=== PATIENT | male | born 1935 | race Caucasian/White ===

== ENCOUNTER → 2017-04-16 | Outpatient (CLI) | payer MEDICARE, OTHER ==
[~2017-04-16] MED LIST: ADENOSINE 82 MG in GIVE UN-DILUTED 0 ML IV ONE
== END | disposition home or self-care (01) ==
LOC: Rad HDHVI 08:41
PROVIDERS: ATTEND Internal Medicine Cardiovascular Disease
DX: I10 Essential (primary) hypertension (principal); E78.5 Hyperlipidemia, unspecified; R06.02 Shortness of breath
CPT/HCPCS: 78452; 93005; 93306; 93880; 96374; 96375; A9500; J0153

== ENCOUNTER → 2017-06-11 | Outpatient (CLI) | payer MEDICARE, OTHER ==
[~2017-06-11] MED LIST changes: -ADENOSINE 82 MG in GIVE UN-DILUTED 0 ML IV ONE; +AMLO5TAB2 PO; +CAND32TA OR; +CHOL135C6 OR; +EZET10TA PO; +LEVO75TA50 PO; +METO-169 PO; +OMEP20TA PO
[2017-06-11 08:55] VITALS: BP 129/74
[2017-06-11 09:20] VITALS: BP 123/74
[2017-06-11 12:01] LABS: Basophils # (auto) 0 uL; Basophils % (auto) 0.7 % (0.0-2.0); Eosinophils # (auto) 0 uL; Hematocrit 46.8 % (41.0-53.0); Lymphocytes % (auto) 16.6 % (10.0-50.0); Mean Corpuscular Hemoglobin 30.7 pg (28.0-32.0); Mean Corpuscular Hgb Conc. 34.2 g/dL (32.0-36.0); Mean Corpuscular Volume 89.8 fL (80.0-100.0); Monocytes # (auto) 0.5 uL; Monocytes % (auto) 8.7 % (0.0-12.0); Neutrophils # (auto) 4.6 uL; Nucleated Red Blood Cells % 0.7 %; Platelet Count (auto) 134 10^3/uL (140-450); Red Blood Cells 5.22 10^6/uL (4.5-5.90); Red Cell Distribution Width 13.9 % (11.8-14.3); White Blood Cell 6.2 10^3/uL (4.4-10.8)
[2017-06-11 12:10] LABS: BUN/Creatinine Ratio 18.8; Calcium 9.7 mg/dL (8.5-10.1); Potassium 4.4 mmol/L (3.5-5.1)
[2017-06-11 12:12] LABS: INR 0.98 (0.9-1.15); Partial Thromboplastin Time 26.6 sec (22.64-33.71); Prothrombin Time 10.7 sec (9.37-12.3)
== END | disposition home or self-care (01) ==
LOC: Rad HDHVI 08:46
PROVIDERS: ATTEND Internal Medicine Cardiovascular Disease
DX: Z01.818 Encounter for other preprocedural examination (principal); I70.0 Atherosclerosis of aorta; I10 Essential (primary) hypertension; E78.5 Hyperlipidemia, unspecified
CPT/HCPCS: 36415; 71046; 80048; 85025; 85610; 85730; 93005; G0463

== ENCOUNTER → 2017-09-09 | Outpatient (CLI) | payer MEDICARE, BC | END | disposition home or self-care (01) | LOC: Rad HDHVI 13:41 | PROVIDERS: ATTEND Internal Medicine Cardiovascular Disease | DX: I25.10 Atherosclerotic heart disease of native coronary artery without angina pectoris (principal); I51.7 Cardiomegaly; I35.1 Nonrheumatic aortic (valve) insufficiency | CPT/HCPCS: 93306 ==

== ENCOUNTER → 2018-06-23 | Outpatient (CLI) | payer MEDICARE, BC ==
[~2018-06-23] VITALS: Ht 175.3 cm; Wt 99.8 kg
[~2018-06-23] MED LIST changes: +ADENOSINE 84 MG in GIVE UN-DILUTED 0 ML IV ONE; +ADENOSINE 90 MG/30 ML INJ IV ONE; +AMLO5TAB13 PO; -AMLO5TAB2 PO
== END | disposition home or self-care (01) ==
LOC: Rad HDHVI 12:40
PROVIDERS: ATTEND Internal Medicine Cardiovascular Disease
DX: I35.1 Nonrheumatic aortic (valve) insufficiency (principal); I25.119 Atherosclerotic heart disease of native coronary artery with unspecified angina pectoris; J44.9 Chronic obstructive pulmonary disease, unspecified; I11.0 Hypertensive heart disease with heart failure; I50.32 Chronic diastolic (congestive) heart failure; Z95.5 Presence of coronary angioplasty implant and graft; Z86.69 Personal history of other diseases of the nervous system and sense organs
CPT/HCPCS: 78452; 93005; 93306; 96374; 96375; A9500; J0153

== ENCOUNTER → 2019-12-07 | Outpatient (CLI) | payer MEDICARE, BC ==
[~2019-12-07] MED LIST changes: -ADENOSINE 84 MG in GIVE UN-DILUTED 0 ML IV ONE; -ADENOSINE 90 MG/30 ML INJ IV ONE; -AMLO5TAB13 PO; +AMLO5TAB15 PO; +CHOL135C10 OR; -CHOL135C6 OR; -EZET10TA PO; +EZET10TA20 PO
== END | disposition home or self-care (01) ==
LOC: Rad HDHVI 08:48
PROVIDERS: ATTEND Internal Medicine Cardiovascular Disease
DX: I50.43 Acute on chronic combined systolic (congestive) and diastolic (congestive) heart failure (principal); R07.89 Other chest pain
CPT/HCPCS: 93306

== ENCOUNTER → 2019-12-09 | Outpatient (CLI) | payer MEDICARE, BC ==
[~2019-12-09] VITALS: Ht 175.3 cm; Wt 104.8 kg
[~2019-12-09] MED LIST changes: +ADENOSINE 88 MG in GIVE UN-DILUTED 0 ML IV ONE; +ADENOSINE 90 MG/30 ML INJ IV ONE
== END | disposition home or self-care (01) ==
LOC: Rad HDHVI 13:18
PROVIDERS: ATTEND Internal Medicine Cardiovascular Disease
DX: I11.0 Hypertensive heart disease with heart failure (principal); I50.32 Chronic diastolic (congestive) heart failure; I25.10 Atherosclerotic heart disease of native coronary artery without angina pectoris; E78.00 Pure hypercholesterolemia, unspecified; J44.9 Chronic obstructive pulmonary disease, unspecified; R06.02 Shortness of breath; Z82.49 Family history of ischemic heart disease and other diseases of the circulatory system
CPT/HCPCS: 78452; 93005; 96374; 96375; A9500; J0153

== ENCOUNTER → 2020-04-13 | Outpatient (CLI) | payer MEDICARE, BC ==
[~2020-04-13] MED LIST changes: -ADENOSINE 88 MG in GIVE UN-DILUTED 0 ML IV ONE; -ADENOSINE 90 MG/30 ML INJ IV ONE; +AMLO-489 PO; -AMLO5TAB15 PO; +LEV75T PO; -LEVO75TA50 PO
== END | disposition home or self-care (01) ==
LOC: Rad HDHVI 10:00
PROVIDERS: ATTEND Internal Medicine Cardiovascular Disease
DX: I25.119 Atherosclerotic heart disease of native coronary artery with unspecified angina pectoris (principal); I10 Essential (primary) hypertension
CPT/HCPCS: 93880

== ENCOUNTER → 2020-10-09 | Outpatient (CLI) | payer MEDICARE, BC ==
[~2020-10-09] MED LIST changes: -METO-169 PO; +METO-289 PO
== END | disposition home or self-care (01) ==
LOC: Rad HDHVI 12:59
PROVIDERS: ATTEND Internal Medicine Cardiovascular Disease
DX: I08.3 Combined rheumatic disorders of mitral, aortic and tricuspid valves (principal); I50.43 Acute on chronic combined systolic (congestive) and diastolic (congestive) heart failure; R00.2 Palpitations; I71.2 Thoracic aortic aneurysm, without rupture
CPT/HCPCS: 93306

== ENCOUNTER 2023-12-17 09:29 | Inpatient (IN) | payer MEDICARE, BC ==
[~2023-12-17] VITALS: Ht 177.8 cm; Wt 74.2 kg
[~2023-12-17 09:29] MED LIST changes: -AMLO-489 PO; +AMLO1TAB22 PO; +EZET-59 PO; -EZET10TA20 PO
[2023-12-17 09:55] VITALS: PULSE 105; RESP 30; O2SAT 93
--- NOTE | 2023-12-17 10:11 | ED.PDOC ---
SOB-HPI HPI Comments 88 year old male accompanied by daughter presents to the ED with chief complaint of generalized weakness. Daughter reports that the patient has been experiencing generalized weakness with associated increased confusion, urinary frequency, productive cough with yellow phlegm, and chills since last night. Daughter relays that the patient is normally able to ambulate a short distance with a walker, but now he is too weak to be able to move on his own with a walker. Daughter states patient is currently undergoing treatment for Prostate cancer at [facility], needing to receive injections every 3 months. Patient denies any SOB, chest pain, dizziness, headache, fever, or abdominal pain. Chief Complaint: Flu like Time Seen by MD: 10:06 Primary Care Provider: DR TOLEDO Reviewed notes: Nurses Notes, Medications, Allergies Information Source: Patient, Relative (Daughter) Mode of Arrival: Wheelchair Severity: Moderate Timing: Hours Duration: Since onset Context: At Rest PE Risk Factors: None History of: None Prehospital treatment: None Modifying Factors: Nothing Associated Signs and Symptoms: Cough If cough with SOB: Productive, Yellow Past Medical History PAST MEDICAL HISTORY: Cancer (prostate), Dementia Surgical History: Denies all surgeries Family History Family History: Reviewed,noncontributory to illness Social History Smoker: Non-Smoker Alcohol: Denies ETOH Use Drugs: Denies Drug Use Lives In: Home, Assisted Care Constitutional: reports: chills, weakness; denies: diaphoresis, fatigue, fever, malaise, sweats, others EENTM: denies: blurred vision, double vision, ear bleeding, ear discharge, ear drainage, ear pain, ear ringing, eye pain, eye redness, hearing loss, mouth pain, mouth swelling, nasal discharge, nose bleeding, nose congestion, nose liv n, photophobia, tearing, throat pain, throat swelling, voice changes, others Respiratory: reports: cough; denies: hemoptysis, orthopnea, SOB at rest, shortness of breath, SOB with excertion, stridor, wheezing, others Cardiovascular: denies: chest pain, dizzy spells, diaphoresis, Dyspnea on exertion, edema, irregular heart beat, left arm pain, lightheadedness, palpitations, PND, syncope, others Gastrointestinal: denies: abdomen distended, abdominal pain, blood streaked bowels, constipated, diarrhea, dysphagia, difficulty swallowing, hematemesis, me mariela, nausea, poor appetite, poor fluid intake, rectal bleeding, rectal pain, vomiting, others Genitourinary: reports: frequency; denies: burning, dysuria, flank pain, hematuria, incontinence, penile discharge, penile sore, pain, testicle pain, testicle swelling, urgency, others Neurological: denies: dizziness, fainting, headache, left sided numbness, left sided weakness, numbness, paresthesia, pre-existing deficit, right sided numbness, right sided weakness, seizure, speech problems, tingling, tremors, weakness, others Musculoskeletal: denies: back pain, gout, joint pain, joint swelling, muscle pain, muscle stiffness, neck pain, others Integumetry: denies: bruises, change in color, change in hair/nails, dryness, laceration, lesions, lumps, rash, wounds, others Allergic/Immunocompromised: denies: Difficulty Healing, Frequent Infections, Hives, Itching, others Hematologic/Lymphatic: denies: anemia, blood clots, easy bleeding, easy bruising, swollen glands, others Endocrine: denies: excessive hunger, excessive sweating, excessive thirst, excessive urination, flushing, intolerance to cold, intolerance to heat, unexplained weight gain, unexplained weight loss, others Psychiatric: denies: anxiety, bipolar disorder, depression, hopeless, panic disorder, schizophrenia, sleepless, suicidal, others All Other Systems: Reviewed and Negative Physical Exam General Appearance: Moderate Distress, Normal HEENT: Normal ENT Inspection, PERRL/EOMI Neck: Full Range of Motion, Non-Tender, Normal, Normal Inspection Respiratory: Chest Non-Tender, No Accessory Muscle Use, No Respiratory Distress, Other (Coarse breath sounds) Cardiovascular: No Edema, No JVD, No Murmur, No Gallop, Normal Peripheral Puls es, Regular Rate/Rhythm Breast Exam: Deferred Gastrointestinal: No Organomegaly, Non Tender, No Pulsatile Mass, Normal Bowel Sounds, Soft Genitalia: Deferred Pelvic: Deferred Rectal: Deferred Extremities: No calf tenderness, Normal capillary refill, Normal inspection, Normal range of motion, Non-tender, No pedal edema Musculoskeletal : Apperance: Normal Neurologic: 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 Was a procedure done?: No Differential Dx Differential Diagnosis: Anxiety, Asthma, Bronchitis X-Ray, Labs, Meds, VS Vital Signs Date Time Temp Pulse Resp B/P (MAP) Pulse Ox O2 Delivery O2 Flow Rate FiO2 12/17/23 16:00 99 19 99/57 (71) 92 12/17/23 16:00 104 12/17/23 15:10 109 25 101/56 12/17/23 14:39 102 29 124/63 12/17/23 12:04 100 18 129/61 (83) 92 12/17/23 12:00 104 28 129/61 (83) 92 12/17/23 09:55 105 30 131/66 (87) 93 12/17/23 09:55 105 30 93 Room Air* 0 21 12/17/23 09:39 98.8 122 20 120/66 (84) 94 Lab Test 12/17/23 14:30 12/17/23 12:41 12/17/23 11:19 Range/Units Troponin I High Sensitivity 231 *H 187 *H 154 *H </=54 ng/L White Blood Count 8.7 4.4-10.8 10^3/uL Red Blood Count 4.42 L 4.5-5.90 10^6/uL Hemoglobin 14.0 13.5-17.5 g/dL Hematocrit 41.5 41.0-53.0 % Mean Corpuscular Volume 93.9 80.0-100.0 fL Mean Corpuscular Hemoglobin 31.6 28.0-32.0 pg Mean Corpuscular Hemoglobin Concent 33.7 32.0-36.0 g/dL Red Cell Distribution Width 13.0 11.8-14.3 % Platelet Count 91 L 140-450 10^3/uL Mean Platelet Volume 7.2 6.9-10.8 fL Neutrophils (%) (Auto) 89.4 H 37.0-80.0 % Lymphocytes (%) (Auto) 3.3 L 10.0-50.0 % Monocytes (%) (Auto) 6.9 0.0-12.0 % Eosinophils (%) (Auto) 0.1 0.0-7.0 % Basophils (%) (Auto) 0.3 0.0-2.0 % Neutrophils # (Auto) 7.8 1.6-8.6 10 ^3/uL Lymphocytes # (Auto) 0.3 L 0.4-5.4 10 ^3/uL Monocytes # (Auto) 0.6 0-1.3 10 ^3/uL Eosinophils # (Auto) 0 0-0.8 10 ^3/uL Basophils # (Auto) 0 0-0.2 10 ^3/uL Nucleated Red Blood Cells 0.0 % Sodium Level 137 136-145 mmol/L Potassium Level 3.5 3.5-5.1 mmol/L Chloride Level 106 98-107 mmol/L Carbon Dioxide Level 27 20-31 mmol/L Anion Gap 4 L 5-15 Blood Urea Nitrogen 16 9-23 mg/dL Creatinine 1.09 0.700-1.30 mg/dL Glomerular Filtration Rate Calc 66 >90 mL/min BUN/Creatinine Ratio 14.7 10.0-20.0 Serum Glucose 107 H 74-106 mg/dL Calcium Level 9.6 8.7-10.4 mg/dL Current Medications Medications (Trade) Dose Ordered Sig/Bob Route Start Time Stop Time Status Last Admin Sodium Chloride 1,000 ml @ 150 mls/hr Q6H40M ONCE IV 12/17/23 11:00 12/17/23 17:39 12/17/23 11:13 Levofloxacin/ Dextrose 100 ml @ 100 mls/hr ONCE ONCE IV 12/17/23 12:45 12/17/23 13:44 DC 12/17/23 12:51 Ondansetron HCl (Zofran) 4 mg ONCE ONCE IV 12/17/23 14:45 12/17/23 14:46 DC 12/17/23 14:38 Morphine Sulfate 2 mg ONCE ONCE IV 12/17/23 14:45 12/17/23 14:46 DC 12/17/23 14:39 Patient alert. Generalized weakness. Uses walker. He does have dry mucous membranes. Establish intravenous access. Was given fluids. EKG reviewed does not show any acute changes. Explained to the family the treatment plan. Reviewed his previous visit. Cardiac marker elevated. Was given Lovenox. Chest x-ray reviewed does show pneumonia. Was given Levaquin. Continue cardiac monitoring. Chest XR: Diffuse interstitial opacities which can be seen in setting of pulmonary edema or atypical infection. Suggestion of sclerotic appearance of the osseous structures for which metastatic disease can not be excluded. Possible pathologic bilateral rib fractures. Further evaluation with CT is recommended. Images Reviewed?: Images reviewed and evaluated by me Time of 1ST Reevaluation: 11:06 Reevaluation 1ST: Unchanged Patient Education/Counseling: Diagnosis, Treatment Family Education/Counseling: Diagnosis, Treatment Departure 1 Departure Time of Disposition: 11:20 Impression: Primary Impression: NSTEMI (non-ST elevated myocardial infarction) Additional Impressions: Dehydration Pneumonia Qualified Codes: J18.9 - Pneumonia, unspecified organism Disposition: ADMITTED INPATIENT Admit to: Med Surg Condition: Guarded Critical Care Note Critical Care Time?: Yes (45 min-critical care time only) Stability Stability form required: No Heart Score Heart Score: Heart Score Response (Comments) Value History Slightly Suspicious 0 EKG Normal 0 Age >65 2 Risk Factors >3 or Hx ASHD 2 Troponin Normal limit 0 Total 4 I personally scribed for REI LARSON MD ([email or web address]) on 12/17/23 at 10:11. Electronically submitted by [place] ([email or web address]). I personally scribed for REI LARSON MD ([email or web address]) on 12/17/23 at 11:45. Electronically submitted by [place] ([email or web address]). REI LARSON MD Dec 17, 2023 10:11
[2023-12-17] MEDS: SODIUM CHLORIDE 0.9% 1,000 ML IV ONE (11:13)
--- NOTE | 2023-12-17 11:30 | DVH ---
EXAM: XY CHEST PORTABLE Indication:sob Technique: Single frontal view of the chest was obtained Comparison: None FINDINGS: Lines and Tubes: None Lungs: Diffuse interstitial opacities. Pleura: No effusion. No pneumothorax. Cardiomediastinal contours: Unremarkable Bones: Suggestion of sclerotic appearance of the osseous structures. Possible pathologic bilateral ri b fractures. IMPRESSION: Diffuse interstitial opacities which can be seen in setting of pulmonary edema or atypical infection. Suggestion of sclerotic appearance of the osseous structures for which metastatic disease can not be excluded. Possible pathologic bilateral rib fractures. Further evaluation with CT is recommended.
[2023-12-17 11:52] LABS: Basophils # (auto) 0 10 ^3/uL (0-0.2); Basophils % (auto) 0.3 % (0.0-2.0); Eosinophils # (auto) 0 10 ^3/uL (0-0.8); Eosinophils % (auto) 0.1 % (0.0-7.0); Hematocrit 41.5 % (41.0-53.0); Lymphocytes # (auto) 0.3 10 ^3/uL (0.4-5.4); Lymphocytes % (auto) 3.3 % (10.0-50.0); Mean Corpuscular Hemoglobin 31.6 pg (28.0-32.0); Mean Corpuscular Hgb Conc. 33.7 g/dL (32.0-36.0); Mean Corpuscular Volume 93.9 fL (80.0-100.0); Monocytes # (auto) 0.6 10 ^3/uL (0-1.3); Monocytes % (auto) 6.9 % (0.0-12.0); Neutrophils # (auto) 7.8 10 ^3/uL (1.6-8.6); Neutrophils % (auto) 89.4 % (37.0-80.0); Platelet Count (auto) 91 10^3/uL (140-450); Red Blood Cells 4.42 10^6/uL (4.5-5.90); White Blood Cell 8.7 10^3/uL (4.4-10.8)
[2023-12-17 12:00] LABS: Chloride 106 mmol/L (98-107); Potassium 3.5 mmol/L (3.5-5.1); Sodium 137 mmol/L (136-145)
[2023-12-17 12:01] LABS: Anion Gap 4 (5-15); Calcium 9.6 mg/dL (8.7-10.4); Carbon Dioxide 27 mmol/L (20-31)
[2023-12-17 12:06] LABS: BUN/Creatinine Ratio 14.7 (10.0-20.0); Blood Urea Nitrogen 16 mg/dL (9-23); Glucose 107 mg/dL (74-106)
[2023-12-17] MEDS: levoFLOXacin 500MG 100 ML IV ONE (12:51)
[2023-12-17] MEDS: ENOXAPARIN SOD 80 MG/0.8ML SYRINGE SC ONE (13:43)
[2023-12-17] MEDS: ONDANSETRON HCL 4 MG/2 ML VIAL IV ONE (14:38)
[2023-12-17] MEDS: MORPHINE SULFATE INJ 2 MG/ml SYRG IV ONE (14:39)
[2023-12-17] MEDS ORDERED: MORPHINE SULFATE INJ 2 MG/ml SYRG IV PRN (18:45)
[2023-12-17] MEDS ORDERED: LEVO200T7 PO (18:45)
[2023-12-17] MEDS ORDERED: TAMS0.4C39 PO (18:45)
[2023-12-17] MEDS ORDERED: ACETAMINOPHEN 325 MG TAB PO PRN (18:45)
[2023-12-17] MEDS ORDERED: ONDANSETRON HCL 4 MG/2 ML VIAL IV PRN (18:45)
[2023-12-17] MEDS ORDERED: DOCUSATE SOD 100 MG CAP PO PRN (18:45)
[2023-12-17] MEDS ORDERED: NITROGLYCERIN 0.4 MG SL TAB SL PRN (18:45)
[2023-12-17] MEDS ORDERED: HYDROcodone-ACET 5/325MG TAB PO PRN (18:45)
[2023-12-17] MEDS ORDERED: PRE5T PO (18:45)
[2023-12-17] MEDS ORDERED: ABIR250T5 PO (18:46)
--- NOTE | 2023-12-17 19:02 | DVHHP2 ---
History of Present Illness Reason for Visit: Generalized weakness History of Present Illness Mary Dockery is an 88-year-old male with past medical history of dementia, hypothyroidism, and prostate cancer, who came into the ER due to generalized weakness. Family states the patient has become more fatigued, confused, frequent urination, and having flu like symptoms with a productive cough, and chills since last night. Patient has had elevated troponin while in the ER, he denies any chest pain, but was complaining of shoulder pain when he arrived. 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 Heme/Onc: Cancer (Prostate) Endocrine: Hypothyroidism Past Surgical History: Cholecystectomy, Cataract Removal, Other (back, PTCA), Total hip replacement (right) Family History: None Smoke: No ALCOHOL: none Drugs: None Lives: with Family Domestic Violence: Neg Review of Systems Constitutional: Yes: Chills, Weakness, Malaise; No: Fever, Sweats, Other Eyes: No: Pain, Vision change, Conjunctivae inflammation, Eyelid inflammation, Other, Redness ENT: No: Ear pain, Ear discharge, Nose pain, Nose discharge, Nose congestion, Mouth pain, Mouth swelling, Throat pain, Throat swelling, Other Respiratory: Cough, Shortness of breath, SOB with excertion, Sputum; No: Dry, Wheezing, Hemoptysis, Pleuritic Pain, Wheezing, Other Cardiovascular: No: Chest Pain, Palpitations, Orthopnea, Paroxysmal Noc. Dyspnea, Edema, Lt Headedness, Other Gastrointestinal: No: Nausea, Vomiting, Abdominal Pain, Diarrhea, Constipation, Melena, Hematochezia, Other Genitourinary: No Dysuria, No Frequency, No Incontinence, No Hematuria, No Retention, No Other Musculoskeletal: No: other, neck pain, shoulder pain, arm pain, back pain, hand pain, leg pain, foot pain Skin: No: Rash, Lesions, Jaundice, Bruising, Other Neurological: No: Weakness, Numbness, Incoordination, Change in speech, Confusion, Seizures, Other Allergies: Coded Allergies: NO KNOWN ALLERGIES (Unverified , 06/11/17) Medications Current Medications Medications Dose Ordered Sig/Bob Route Start Time Stop Time Status Last Admin Dose Admin Sodium Chloride 10 ml Q8HR IV 12/17/23 22:00 UNV Acetaminophen/ Hydrocodone Bitart 1 tab Q4HP PRN PO 12/17/23 18:45 UNV Ondansetron HCl 4 mg Q4HP PRN IV 12/17/23 18:45 UNV Docusate Sodium 100 mg BIDPRN PRN PO 12/17/23 18:45 UNV Acetaminophen 650 mg Q6HP PRN PO 12/17/23 18:45 UNV Nitroglycerin 0.4 mg Q5MINP PRN SL 12/17/23 18:45 UNV Morphine Sulfate 2 mg Q30M PRN IV 12/17/23 18:45 UNV Patient Own Medication 1 tab DAILY PO 12/18/23 10:00 UNV Prednisone 5 mg DAILY PO 12/18/23 10:00 UNV Tamsulosin HCl 0.4 mg BID PO 12/17/23 22:00 UNV Patient Own Medication 1 tab DAILY PO 12/18/23 10:00 UNV Exam Vital Signs Vital Signs Date Time Temp Pulse Resp B/P (MAP) Pulse Ox O2 Delivery O2 Flow Rate FiO2 12/17/23 16:00 99 19 99/57 (71) 92 12/17/23 09:55 Room Air* 0 21 12/17/23 09:39 98.8 General Appearance: Alert, Oriented X3, Cooperative, mild distress HEENT: Atraumatic, PERRLA Respiratory: Other (diminshed breath sounds) Cardiovascular: Regular rate, Normal S1, Normal S2 Abdominal: Normal bowel sounds, Soft, No tenderness Extremities: No clubbing, No cyanosis, No edema, Normal pulses Skin: No rashes, No breakdown, No significant lesion Psych/Mental Status: Mental status NL Labs/Xrays Labs Test 12/17/23 14:30 12/17/23 11:19 Range/Units Troponin I High Sensitivity 231 *H </=54 ng/L White Blood Count 8.7 4.4-10.8 10^3/uL Red Blood Count 4.42 L 4.5-5.90 10^6/uL Hemoglobin 14.0 13.5-17.5 g/dL Hematocrit 41.5 41.0-53.0 % Mean Corpuscular Volume 93.9 80.0-100.0 fL Mean Corpuscular Hemoglobin 31.6 28.0-32.0 pg Mean Corpuscular Hemoglobin Concent 33.7 32.0-36.0 g/dL Red Cell Distribution Width 13.0 11.8-14.3 % Platelet Count 91 L 140-450 10^3/uL Mean Platelet Volume 7.2 6.9-10.8 fL Neutrophils (%) (Auto) 89.4 H 37.0-80.0 % Lymphocytes (%) (Auto) 3.3 L 10.0-50.0 % Monocytes (%) (Auto) 6.9 0.0-12.0 % Eosinophils (%) (Auto) 0.1 0.0-7.0 % Basophils (%) (Auto) 0.3 0.0-2.0 % Neutrophils # (Auto) 7.8 1.6-8.6 10 ^3/uL Lymphocytes # (Auto) 0.3 L 0.4-5.4 10 ^3/uL Monocytes # (Auto) 0.6 0-1.3 10 ^3/uL Eosinophils # (Auto) 0 0-0.8 10 ^3/uL Basophils # (Auto) 0 0-0.2 10 ^3/uL Nucleated Red Blood Cells 0.0 % Sodium Level 137 136-145 mmol/L Potassium Level 3.5 3.5-5.1 mmol/L Chloride Level 106 98-107 mmol/L Carbon Dioxide Level 27 20-31 mmol/L Anion Gap 4 L 5-15 Blood Urea Nitrogen 16 9-23 mg/dL Creatinine 1.09 0.700-1.30 mg/dL Glomerular Filtration Rate Calc 66 >90 mL/min BUN/Creatinine Ratio 14.7 10.0-20.0 Serum Glucose 107 H 74-106 mg/dL Calcium Level 9.6 8.7-10.4 mg/dL EXAM: XY CHEST PORTABLE FINDINGS: Lines and Tubes: None Lungs: Diffuse interstitial opacities. Pleura: No effusion. No pneumothorax. Cardiomediastinal contours: Unremarkable Bones: Suggestion of sclerotic appearance of the osseous structures. Possible pathologic bilateral rib fractures. IMPRESSION: Diffuse interstitial opacities which can be seen in setting of pulmonary edema or atypical infection. Suggestion of sclerotic appearance of the osseous structures for which metastatic disease can not be excluded. Possible pathologic bilateral rib fractures. Further evaluation with CT is recommended. Assessment/Plan Assessment/Plan Assessment: Pneumonia, Elevated troponin, Thrombocytopenia, Prostate cancer, Possible Bone cancer, Plan: Admit to Tele, Cardiology consult, IV antibiotics, Urine culture, Home medications reconciled, Consider chest CT to evaluate possible metastatic disease, Plan discussed with: Patient, Daughter My Orders Orders - ALIS PARIS Procedure Category Date Status Time Admit ADMIT 12/17/23 Transmitted 18:40 Code Status CODE 12/17/23 Transmitted 18:40 2 Gm Sodium Diet DIET 12/18/23 Transmitted Breakfast Sodium Chloride Lock PHA 12/17/23 Logged (Saline Lock Ns) 22:00 Hydrocodone-Acet PHA 12/17/23 Logged 5/325mg Tab (Clarence 18:45 Ondansetron Hcl PHA 12/17/23 Logged (Zofran) 18:45 Docusate Sodium PHA 12/17/23 Logged Capsule (Colace 18:45 Fall Risk Precautions SAGRARIO 12/17/[address] 18:40 Complete Blood Count LAB 12/18/23 Verified 04:00 Comprehensive LAB 12/18/23 Verified Metabolic Panel 04:00 Echo 2d Mode Cardiac US 12/17/23 Logged DOP 18:40 Condition: Serious SAGRARIO 12/17/23 In Process 18:40 Acetaminophen Tablet PHA 12/17/23 Logged (Tylenol Tablet) 18:45 Nitroglycerin PHA 12/17/23 Logged Sublingual (Ntrostat 18:45 Morphine Sulfate PHA 12/17/23 Logged Injection 18:45 Stat Ekg For Chest SAGRARIO 12/17/23 In Process Pain 18:40 Notify Of Changes S[place]IO 12/17/23 In Process From Base 18:40 Supercharger Repair Supervisor For [facility] 12/17/23 In Process 24 Hours 18:40 Emergency Dysrhythmia [facility] 12/17/23 In Process Protocol 18:40 Rhythm Strips Once [facility] 12/17/23 In Process Every Shift 18:40 Oxygen By Nasal RT 12/17/23 Transmitted Cannula 18:40 (Nf) Omeprazole (Gnp PHA 12/18/23 Logged Omeprazole) 10:00 Prednisone Tablet PHA 12/18/23 Transmitted 10:00 Tamsulosin PHA 12/17/23 Transmitted Hydrochloride (Flomax) 22:00 (Nf) Levothyroxine PHA 12/18/23 Transmitted Sodium 10:00 Date of Service: Dec 17, 2023 Billing Provider: ALIS PARIS Common Visit Codes: [id number] INP/OBS CARE (MOD) ALIS PARIS Dec 17, 2023 19:02
[2023-12-17 19:30] VITALS: PULSE 105; RESP 15; O2SAT 94
[2023-12-17 22:18] VITALS: BP 103/45; PULSE 84; RESP 18; TEMP 99.3; O2SAT 91
[2023-12-17] MEDS: TAMSULOSIN HYDROCHLORIDE 0.4 MG CAP PO SCH (23:00)
[2023-12-17] MEDS: SODIUM CHLOR 0.9% PF (SALINE LOCK) 10ML VIAL/SYR IV SCH (23:01)
[2023-12-17 23:04] VITALS: BP 103/45; PULSE 84; PULSE 85; RESP 17; RESP 18; TEMP 99.3; O2SAT 91; O2SAT 92
[2023-12-18] VITALS (8 sets, daily range): BP systolic 94–140; BP diastolic 50–70; PULSE 61–96; RESP 16–19; TEMP 97.3–98.4; O2SAT 91–97
[2023-12-18] MEDS: LEVOTHYROXINE SODIUM 100 MCG TAB PO SCH (06:44)
[2023-12-18 07:01] LABS: Basophils # (auto) 0 10 ^3/uL (0-0.2); Basophils % (auto) 0.4 % (0.0-2.0); Eosinophils # (auto) 0 10 ^3/uL (0-0.8); Eosinophils % (auto) 0.2 % (0.0-7.0); Hemoglobin 12.9 g/dL (13.5-17.5); Lymphocytes # (auto) 0.4 10 ^3/uL (0.4-5.4); Lymphocytes % (auto) 7.8 % (10.0-50.0); Mean Corpuscular Hemoglobin 31.3 pg (28.0-32.0); Mean Corpuscular Hgb Conc. 33.2 g/dL (32.0-36.0); Mean Corpuscular Volume 94.5 fL (80.0-100.0); Monocytes # (auto) 0.6 10 ^3/uL (0-1.3); Monocytes % (auto) 10.2 % (0.0-12.0); Neutrophils # (auto) 4.5 10 ^3/uL (1.6-8.6); Neutrophils % (auto) 81.4 % (37.0-80.0); Platelet Count (auto) 81 10^3/uL (140-450); Red Blood Cells 4.12 10^6/uL (4.5-5.90); Red Cell Distribution Width 13.4 % (11.8-14.3); White Blood Cell 5.5 10^3/uL (4.4-10.8)
[2023-12-18 07:25] LABS: Albumin 3.2 g/dL (3.2-4.8); Alkaline Phosphatase 157 U/L (46-116); Anion Gap 6 (5-15); Aspartate Aminotransferase 19 U/L (13-40); BUN/Creatinine Ratio 23.7 (10.0-20.0); Blood Urea Nitrogen 23 mg/dL (9-23); Calcium 9.3 mg/dL (8.7-10.4); Carbon Dioxide 25 mmol/L (20-31); Chloride 107 mmol/L (98-107); Glucose 89 mg/dL (74-106); Potassium 3.9 mmol/L (3.5-5.1); Sodium 138 mmol/L (136-145)
[2023-12-18 07:26] LABS: Bilirubin, Total 0.9 mg/dL (0.2-1.0); Total Protein 5.9 g/dL (5.7-8.2)
[2023-12-18 07:30] LABS: Alanine Aminotransferase < 9 U/L (7-40)
[2023-12-18] MEDS ORDERED: PATIENTS OWN MEDICATION (Omeprazole (Gnp Omeprazole) 1 TAB) PO SCH (10:00)
[2023-12-18] MEDS: PANTOPRAZOLE 40 MG TAB PO SCH (11:02)
[2023-12-18] MEDS: AZITHROMYCIN 500MG/ 250ML 250 ML IV SCH (11:03)
[2023-12-18] MEDS: predniSONE 5 MG TAB PO SCH (11:03)
--- NOTE | 2023-12-18 14:19 | DVHPN2 ---
Subjective History of Present Illness Mary Dockery is an 88-year-old male with past medical history of dementia, hypothyroidism, and prostate cancer, who came into the ER due to generalized weakness. Family states the patient has become more fatigued, confused, frequent urination, and having flu like symptoms with a productive cough, and chills since last night. Patient has had elevated troponin while in the ER, he denies any chest pain, but was complaining of shoulder pain when he arrived. upfate - 12/17 - patient is at baseline with respect to alert and orientation. Endorse is history of trouble urinating and frequency/nocturia. On exam he has feeling well itself. Reviewed: H&P Changes from previous H/P or p: No Changes General: Per HPI Musculoskeletal: No other, No neck pain, No shoulder pain, No arm pain, No back pain, No hand pain, No leg pain, No foot pain Skin: No Rash, No Lesions, No Jaundice, No Bruising, No Other Objective Vitals Vital Signs Date Time Temp Pulse Resp B/P (MAP) Pulse Ox O2 Delivery O2 Flow Rate FiO2 12/18/23 09:00 98.4 90 18 94/50 (65) 94 98.4 12/18/23 08:00 Room Air* 0 21 Intake/Output Intake and Output 12/18/23 07:00 Intake Total 100 ml Balance 100 ml Intake Oral 0 ml IV Total 100 ml # Voids 2 # Bowel Movements 1 Exam GEN: Healthy appearing, well-developed, NAD. HEENT: NC/AT; MMM. CV: LLL decreased breath sounds , no m/r/g. LUNGS: CTAB, no w/r/c. ABD: Soft, NT/ND, NBS, no masses or organomegaly. EXT: skin Warm, well perfused. no rashes. No clubbing, cyanosis, or edema. NEURO: Ambulating with no limitations. No focal deficits. Medications Current Medications Medications Dose Ordered Sig/Bob Route Start Time Stop Time Status Last Admin Dose Admin Sodium Chloride 10 ml Q8HR IV 12/17/23 22:00 12/18/23 05:36 10 ML Acetaminophen/ Hydrocodone Bitart 1 tab Q4HP PRN PO 12/17/23 18:45 Ondansetron HCl 4 mg Q4HP PRN IV 12/17/23 18:45 Docusate Sodium 100 mg BIDPRN PRN PO 12/17/23 18:45 Acetaminophen 650 mg Q6HP PRN PO 12/17/23 18:45 Nitroglycerin 0.4 mg Q5MINP PRN SL 12/17/23 18:45 Morphine Sulfate 2 mg Q30M PRN IV 12/17/23 18:45 Prednisone 5 mg DAILY PO 12/18/23 10:00 12/18/23 11:03 5 MG Tamsulosin HCl 0.4 mg BID PO 12/17/23 22:00 12/18/23 11:03 0.4 MG Levothyroxine Sodium 200 mcg QAM PO 12/18/23 07:00 12/18/23 06:44 200 MCG Azithromycin 250 ml @ 125 mls/hr DAILY IV 12/18/23 10:00 12/18/23 11:03 125 MLS/HR Pantoprazole Sodium 40 mg DAILY PO 12/18/23 10:00 12/18/23 11:02 40 MG Laboratory Results Laboratory Tests 12/18/23 06:00 Chemistry Test 12/18/23 06:00 Albumin 3.2 g/dL (3.2-4.8) Calcium Level 9.3 mg/dL (8.7-10.4) Total Protein 5.9 g/dL (5.7-8.2) LFT Test 12/18/23 06:00 Alanine Aminotransferase (ALT) < 9 U/L (7-40) Alkaline Phosphatase 157 U/L (46-116) H Aspartate Amino Transferase (AST) 19 U/L (13-40) Total Bilirubin 0.9 mg/dL (0.2-1.0) Labs and/or images reviewed: Labs reviewed by me, Image(s) reviewed by me Assessment/Plan Assessment/Plan - 12/17 - patient is at baseline with respect to alert and orientation. Endorse is history of trouble urinating and frequency/nocturia. On exam he has feeling well itself. Pneumonia, Gram-negative/Gram-positive organism likely Neutrophilia/left shift -chest x-ray showing atypical pneumonia and bilateral rib fractures which appear to be pathological in nature. -IV antibiotics azithromycin and ceftriaxone -goal oxygen more than 90% Frequency History of urinary hesitancy urinary incontinence, overflow BPH Concern for urinary infection - obtain UA, insert Soto -Continue Flomax Dementia -continue home medications Troponinemia Type 2 NSTEMI likely - keep on tele History of prostate cancer New unknown possible bone cancer Rib pathological fracture sites, unknown chronicity - as per cxr . radiology recommends CT Thrombocytopenia- stable. Plan discussed with: Patient My Orders Orders - MISA CARLSON MD Procedure Category Date Status Time Pt Request For Service PT 12/18/23 Logged 12:19 Date of Service: Dec 18, 2023 Billing Provider: MISA CARLSON MD Common Visit Codes: [id number] INP/OBS CARE(HIGH) MISA CARLSON MD Dec 18, 2023 14:19
--- NOTE | 2023-12-18 14:37 | DVHPN2 ---
Progress Note - Dictate Date Seen: Dec 16, 2023 Medical Necessity Reason Pt with a Central, PICC or Fol: No Subjective PT WITH COUGH FEVER AMS LETAGHY PMH: CAD HX OF PTCA STENT RCA DEMENTIA vital signs Vital Sign Date Time Temp Pulse Resp B/P (MAP) Pulse Ox O2 Delivery O2 Flow Rate FiO2 12/18/23 13:00 97.8 77 18 105/59 (74) 96 97.8 12/18/23 08:00 Room Air* 0 21 Total Intake and Output 12/17/23 12/17/23 12/18/23 15:00 23:00 07:00 Intake Total 100 ml 0 ml Balance 100 ml 0 ml medications Current Medications Medications Dose Ordered Sig/Bob Route Start Time Stop Time Status Last Admin Dose Admin Sodium Chloride 10 ml Q8HR IV 12/17/23 22:00 12/18/23 05:36 10 ML Acetaminophen/ Hydrocodone Bitart 1 tab Q4HP PRN PO 12/17/23 18:45 Ondansetron HCl 4 mg Q4HP PRN IV 12/17/23 18:45 Docusate Sodium 100 mg BIDPRN PRN PO 12/17/23 18:45 Acetaminophen 650 mg Q6HP PRN PO 12/17/23 18:45 Nitroglycerin 0.4 mg Q5MINP PRN SL 12/17/23 18:45 Morphine Sulfate 2 mg Q30M PRN IV 12/17/23 18:45 Prednisone 5 mg DAILY PO 12/18/23 10:00 12/18/23 11:03 5 MG Tamsulosin HCl 0.4 mg BID PO 12/17/23 22:00 12/18/23 11:03 0.4 MG Levothyroxine Sodium 200 mcg QAM PO 12/18/23 07:00 12/18/23 06:44 200 MCG Azithromycin 250 ml @ 125 mls/hr DAILY IV 12/18/23 10:00 12/18/23 11:03 125 MLS/HR Pantoprazole Sodium 40 mg DAILY PO 12/18/23 10:00 12/18/23 11:02 40 MG laboratory and microbiology Laboratory Tests 12/18/23 06:00 Test 12/18/23 06:00 Range/Units Serum Glucose 89 74-106 mg/dL Problem List COUGH FEVER AMS LETAGHY PMH: CAD HX OF PTCA STENT RCA DEMENTIA Assessment/Plan WILL CONSIDR [facility] DISCUSS WITH FAMILY Plan discussed with: Patient BENITEZ VALDERRAMA MD Dec 18, 2023 14:37
[2023-12-18 14:38] LABS: Urine Bacteria FEW /hpf (None Seen); Urine Blood 1+ /uL (Negative); Urine Clarity Clear (Clear); Urine Color Light-Yellow (Yellow); Urine Protein, UAD Negative (Negative); Urine Specific Gravity 1.012 (1.001-1.035); Urine Urobilinogen Normal (Negative); Urine WBC 2 /hpf (0 - 3)
--- NOTE | 2023-12-18 14:45 | MEDREC ---
[facility] Intervention Section I [facility] Intervention: Review courses of therapy (DUE TO THE PNEUMONIA INFECTION AND IMMUNOCOMPROMISED STATUS (CANCER), PLEASE CONSIDER ESCALATING ANTIBIOTICS TO COVER FOR POSSIBLE GRAM NEGATIVE BACTERIA ) ARIE GREENWOOD Dec 18, 2023 14:45
[2023-12-19] VITALS (9 sets, daily range): BP systolic 104–143; BP diastolic 52–64; PULSE 57–94; RESP 16–17; TEMP 97.4–98.5; O2SAT 94–98
--- NOTE | 2023-12-19 14:16 | DVHPN2 ---
Progress Note - Dictate Date Seen: Dec 19, 2023 Medical Necessity Reason Pt with a Central, PICC or Fol: No Subjective PT WITH COUGH FEVER AMS LETAGHY PMH: CAD HX OF PTCA STENT RCA DEMENTIA vital signs Vital Sign Date Time Temp Pulse Resp B/P (MAP) Pulse Ox O2 Delivery O2 Flow Rate FiO2 12/19/23 08:39 97.4 62 16 138/54 (82) 98 97.4 12/19/23 08:15 Room Air* 0 21 Total Intake and Output 12/18/23 12/18/23 12/19/23 15:00 23:00 07:00 Intake Total 720 ml 1860 ml 0 ml Output Total 250 ml 900 ml Balance 720 ml 1610 ml -900 ml medications Current Medications Medications Dose Ordered Sig/Bob Route Start Time Stop Time Status Last Admin Dose Admin Sodium Chloride 10 ml Q8HR IV 12/17/23 22:00 12/19/23 14:07 10 ML Acetaminophen/ Hydrocodone Bitart 1 tab Q4HP PRN PO 12/17/23 18:45 Ondansetron HCl 4 mg Q4HP PRN IV 12/17/23 18:45 Docusate Sodium 100 mg BIDPRN PRN PO 12/17/23 18:45 Acetaminophen 650 mg Q6HP PRN PO 12/17/23 18:45 Nitroglycerin 0.4 mg Q5MINP PRN SL 12/17/23 18:45 Morphine Sulfate 2 mg Q30M PRN IV 12/17/23 18:45 Prednisone 5 mg DAILY PO 12/18/23 10:00 12/19/23 09:32 5 MG Tamsulosin HCl 0.4 mg BID PO 12/17/23 22:00 12/19/23 09:33 0.4 MG Levothyroxine Sodium 200 mcg QAM PO 12/18/23 07:00 12/19/23 06:16 200 MCG Azithromycin 250 ml @ 125 mls/hr DAILY IV 12/18/23 10:00 12/19/23 09:32 125 MLS/HR Pantoprazole Sodium 40 mg DAILY PO 12/18/23 10:00 12/19/23 09:33 40 MG laboratory and microbiology Laboratory Tests 12/18/23 06:00 Test 12/18/23 06:00 Range/Units Serum Glucose 89 74-106 mg/dL Problem List COUGH FEVER AMS LETAGHY PMH: CAD HX OF PTCA STENT RCA DEMENTIA Assessment/Plan WILL CONSIDR C DISCUSS WITH FAMILY Plan discussed with: Patient BENITEZ VALDERRAMA MD Dec 19, 2023 14:15
--- NOTE | 2023-12-19 19:35 | DVHPN2 ---
Subjective History of Present Illness Mary Dockery is an 88-year-old male with past medical history of dementia, hypothyroidism, and prostate cancer, who came into the ER due to generalized weakness. Family states the patient has become more fatigued, confused, frequent urination, and having flu like symptoms with a productive cough, and chills since last night. Patient has had elevated troponin while in the ER, he denies any chest pain, but was complaining of shoulder pain when he arrived. update - 12/17 - patient is at baseline with respect to alert and orientation. Endorse is history of trouble urinating and frequency/nocturia. On exam he has feeling well itself. - 12/18 - appears more orient. at bedside offers complete history. 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 she takes care of him and is overwhelmed. 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 patient is dementia and does not want NH. needs help at home (home care or similar). PT following. cardiology following and considering [facility]. Reviewed: H&P Changes from previous H/P or p: No Changes General: Per HPI Musculoskeletal: No other, No neck pain, No shoulder pain, No arm pain, No back pain, No hand pain, No leg pain, No foot pain Skin: No Rash, No Lesions, No Jaundice, No Bruising, No Other Objective Vitals Vital Signs Date Time Temp Pulse Resp B/P (MAP) Pulse Ox O2 Delivery O2 Flow Rate FiO2 12/19/23 17:00 98.0 61 16 143/63 (89) 98 98.0 12/19/23 08:15 Room Air* 0 21 Intake/Output Intake and Output 12/19/23 07:00 Intake Total 2580 ml Output Total 1150 ml Balance 1430 ml Intake Oral 2580 ml Output Urine Total 1150 ml # Voids 4 # Bowel Movements 1 Exam GEN: Healthy appearing, well-developed, NAD. HEENT: NC/AT; MMM. CV: LLL decreased breath sounds , no m/r/g. LUNGS: CTAB, no w/r/c. ABD: Soft, NT/ND, NBS, no masses or organomegaly. EXT: skin Warm, well perfused. no rashes. No clubbing, cyanosis, or edema. NEURO: Ambulating with no limitations. No focal deficits. Medications Current Medications Medications Dose Ordered Sig/Bob Route Start Time Stop Time Status Last Admin Dose Admin Sodium Chloride 10 ml Q8HR IV 12/17/23 22:00 12/19/23 14:07 10 ML Acetaminophen/ Hydrocodone Bitart 1 tab Q4HP PRN PO 12/17/23 18:45 Ondansetron HCl 4 mg Q4HP PRN IV 12/17/23 18:45 Docusate Sodium 100 mg BIDPRN PRN PO 12/17/23 18:45 Acetaminophen 650 mg Q6HP PRN PO 12/17/23 18:45 Nitroglycerin 0.4 mg Q5MINP PRN SL 12/17/23 18:45 Morphine Sulfate 2 mg Q30M PRN IV 12/17/23 18:45 Prednisone 5 mg DAILY PO 12/18/23 10:00 12/19/23 09:32 5 MG Tamsulosin HCl 0.4 mg BID PO 12/17/23 22:00 12/19/23 09:33 0.4 MG Levothyroxine Sodium 200 mcg QAM PO 12/18/23 07:00 12/19/23 06:16 200 MCG Azithromycin 250 ml @ 125 mls/hr DAILY IV 12/18/23 10:00 12/19/23 09:32 125 MLS/HR Pantoprazole Sodium 40 mg DAILY PO 12/18/23 10:00 12/19/23 09:33 40 MG Laboratory Results Laboratory Tests 12/18/23 06:00 Urinalysis Test 12/18/23 14:10 Urine Color Light-yellow (Yellow) Urine Clarity Clear (Clear) Urine pH 6.0 (5.0-9.0) Urine Specific [place] 1.012 (1.001-1.035) Urine Protein Negative (Negative) Urine Ketones Negative (Negative) Urine Blood 1+ /uL (Negative) H Urine Nitrite Negative (Negative) Urine Bilirubin Negative (Negative) Urine Urobilinogen Normal mg/dL (Negative) Urine Leukocyte Esterase 1+ /uL (Negative) Urine RBC 3 /hpf (0 - 3) Urine WBC 2 /hpf (0 - 3) Urine Squamous Epithelial Cells None seen /hpf (<5) Urine Bacteria Few /hpf (None Seen) H Urine Glucose Normal mg/dL (Normal) Microbiology Microbiology Date/Time Source Procedure Growth Status 12/18/23 14:10 Voided Urine Urine Culture - Preliminary Resulted Labs and/or images reviewed: Labs reviewed by me, Image(s) reviewed by me Assessment/Plan Assessment/Plan update - 12/18 - appears more orient. at bedside offers complete history. 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 she takes care of him and is overwhelmed. 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 patient is dementia and does not want NH. needs help at home (home care or similar). PT following. cardiology following and considering [facility]. tentative plan: high risk pt, need IV abx. can keep inpatient until cardiology clears. meanwhile treat with iv abx and remove ray near discharge. hold off cancer drugs while inpatient. Pneumonia, Gram-negative/Gram-positive organism likely Neutrophilia/left shift -chest x-ray showing atypical pneumonia and bilateral rib fractures which appear to be pathological in nature. -IV antibiotics azithromycin and ceftriaxone -goal oxygen more than 90% Frequency History of urinary hesitancy urinary incontinence, overflow BPH Concern for urinary infection - obtain UA, - ray inserted. -Continue Flomax Dementia -continue home medications Troponinemia Type 2 NSTEMI likely - keep on tele - cardiology dr martinez considering [facility]. History of prostate cancer New unknown possible bone cancer Rib pathological fracture sites, unknown chronicity - as per cxr . radiology recommends CT. no need CT as pt already konwn to have mets. will need regular f/u with primary oncologist in [place]. Thrombocytopenia- stable. Plan discussed with: Patient Date of Service: Dec 19, 2023 Billing Provider: MISA CARLSON MD Common Visit Codes: [id number] INP/OBS CARE(HIGH) MISA CARLSON MD Dec 19, 2023 19:35
[2023-12-20] VITALS (9 sets, daily range): BP systolic 123–157; BP diastolic 67–83; PULSE 61–87; RESP 16–18; TEMP 97.4–98.3; O2SAT 90–98
--- NOTE | 2023-12-20 12:54 | DVHPN2 ---
Subjective patient is seen by me today speaking in full sentences, breathing clear. pending cath from dr Fontana Reviewed: H&P Changes from previous H/P or p: No Changes General: Per HPI Musculoskeletal: No other, No neck pain, No shoulder pain, No arm pain, No back pain, No hand pain, No leg pain, No foot pain Skin: No Rash, No Lesions, No Jaundice, No Bruising, No Other Objective Vitals Vital Signs Date Time Temp Pulse Resp B/P (MAP) Pulse Ox O2 Delivery O2 Flow Rate FiO2 12/20/23 08:59 97.4 83 16 123/69 (87) 94 97.4 12/20/23 07:53 Room Air* 0 21 Intake/Output Intake and Output 12/20/23 07:00 Intake Total 1450 ml Output Total 2100 ml Balance -650 ml Intake Oral 1450 ml Output Urine Total 2100 ml # Bowel Movements 1 Medications Current Medications Medications Dose Ordered Sig/Bob Route Start Time Stop Time Status Last Admin Dose Admin Sodium Chloride 10 ml Q8HR IV 12/17/23 22:00 12/20/23 05:51 10 ML Acetaminophen/ Hydrocodone Bitart 1 tab Q4HP PRN PO 12/17/23 18:45 Ondansetron HCl 4 mg Q4HP PRN IV 12/17/23 18:45 Docusate Sodium 100 mg BIDPRN PRN PO 12/17/23 18:45 Acetaminophen 650 mg Q6HP PRN PO 12/17/23 18:45 Nitroglycerin 0.4 mg Q5MINP PRN SL 12/17/23 18:45 Morphine Sulfate 2 mg Q30M PRN IV 12/17/23 18:45 Prednisone 5 mg DAILY PO 12/18/23 10:00 12/20/23 10:24 5 MG Tamsulosin HCl 0.4 mg BID PO 12/17/23 22:00 12/20/23 10:38 0.4 MG Levothyroxine Sodium 200 mcg QAM PO 12/18/23 07:00 12/20/23 05:49 200 MCG Azithromycin 250 ml @ 125 mls/hr DAILY IV 12/18/23 10:00 12/20/23 10:38 125 MLS/HR Pantoprazole Sodium 40 mg DAILY PO 12/18/23 10:00 12/20/23 10:24 40 MG Laboratory Results Laboratory Tests 12/18/23 06:00 Urinalysis Test 12/18/23 14:10 Urine Color Light-yellow (Yellow) Urine Clarity Clear (Clear) Urine pH 6.0 (5.0-9.0) Urine Specific [place] 1.012 (1.001-1.035) Urine Protein Negative (Negative) Urine Ketones Negative (Negative) Urine Blood 1+ /uL (Negative) H Urine Nitrite Negative (Negative) Urine Bilirubin Negative (Negative) Urine Urobilinogen Normal mg/dL (Negative) Urine Leukocyte Esterase 1+ /uL (Negative) Urine RBC 3 /hpf (0 - 3) Urine WBC 2 /hpf (0 - 3) Urine Squamous Epithelial Cells None seen /hpf (<5) Urine Bacteria Few /hpf (None Seen) H Urine Glucose Normal mg/dL (Normal) Microbiology Microbiology Date/Time Source Procedure Growth Status 12/18/23 14:10 Voided Urine Urine Culture - Final Complete Labs and/or images reviewed: Labs reviewed by me, Image(s) reviewed by me Assessment/Plan Assessment/Plan pneumonia possible aspiration BPH with LUTS troponin elevation likely type 2 [place] dementia, baseline hx of prostate cancer pathologic fractures thrombocytopenia keep ray cw flomax cw abx pending [facility] by dr Fontana pt will likely need PET as outpatient palliative consult hold dvt ppx for thrombocytopenia diet HH Plan discussed with: Patient Date of Service: Dec 21, 2023 Billing Provider: MARISA KELLY MD Common Visit Codes: [id number] INP/OBS CARE(HIGH) MARISA KELLY MD Dec 20, 2023 12:54
[2023-12-20] MEDS: MELATONIN 5 MG TAB PO ONE (22:31)
[2023-12-21] VITALS (8 sets, daily range): BP systolic 105–153; BP diastolic 61–76; PULSE 65–96; RESP 17–20; TEMP 97.3–97.8; O2SAT 92–98
--- NOTE | 2023-12-21 18:55 | DVHPN2 ---
Subjective patient is seen by me today VELMA, pending cath from dr Fontana Reviewed: H&P Changes from previous H/P or p: No Changes General: Per HPI Musculoskeletal: No other, No neck pain, No shoulder pain, No arm pain, No back pain, No hand pain, No leg pain, No foot pain Skin: No Rash, No Lesions, No Jaundice, No Bruising, No Other Objective Vitals Vital Signs Date Time Temp Pulse Resp B/P (MAP) Pulse Ox O2 Delivery O2 Flow Rate FiO2 12/21/23 17:00 97.5 86 20 105/61 (76) 94 97.5 12/21/23 08:00 Room Air* 0 21 Intake/Output Intake and Output 12/21/23 07:00 Intake Total 940 ml Output Total 900 ml Balance 40 ml Intake Oral 940 ml Output Urine Total 900 ml Medications Current Medications Medications Dose Ordered Sig/Bob Route Start Time Stop Time Status Last Admin Dose Admin Sodium Chloride 10 ml Q8HR IV 12/17/23 22:00 12/21/23 14:00 10 ML Acetaminophen/ Hydrocodone Bitart 1 tab Q4HP PRN PO 12/17/23 18:45 Ondansetron HCl 4 mg Q4HP PRN IV 12/17/23 18:45 Docusate Sodium 100 mg BIDPRN PRN PO 12/17/23 18:45 Acetaminophen 650 mg Q6HP PRN PO 12/17/23 18:45 Nitroglycerin 0.4 mg Q5MINP PRN SL 12/17/23 18:45 Morphine Sulfate 2 mg Q30M PRN IV 12/17/23 18:45 Prednisone 5 mg DAILY PO 12/18/23 10:00 12/21/23 09:47 5 MG Tamsulosin HCl 0.4 mg BID PO 12/17/23 22:00 12/21/23 09:47 0.4 MG Levothyroxine Sodium 200 mcg QAM PO 12/18/23 07:00 12/21/23 06:15 200 MCG Azithromycin 250 ml @ 125 mls/hr DAILY IV 12/18/23 10:00 12/21/23 09:47 125 MLS/HR Pantoprazole Sodium 40 mg DAILY PO 12/18/23 10:00 12/21/23 09:47 40 MG Laboratory Results Laboratory Tests 12/18/23 06:00 Urinalysis Test 12/18/23 14:10 Urine Color Light-yellow (Yellow) Urine Clarity Clear (Clear) Urine pH 6.0 (5.0-9.0) Urine Specific [place] 1.012 (1.001-1.035) Urine Protein Negative (Negative) Urine Ketones Negative (Negative) Urine Blood 1+ /uL (Negative) H Urine Nitrite Negative (Negative) Urine Bilirubin Negative (Negative) Urine Urobilinogen Normal mg/dL (Negative) Urine Leukocyte Esterase 1+ /uL (Negative) Urine RBC 3 /hpf (0 - 3) Urine WBC 2 /hpf (0 - 3) Urine Squamous Epithelial Cells None seen /hpf (<5) Urine Bacteria Few /hpf (None Seen) H Urine Glucose Normal mg/dL (Normal) Microbiology Microbiology Date/Time Source Procedure Growth Status 12/18/23 14:10 Voided Urine Urine Culture - Final Complete Assessment/Plan Assessment/Plan pneumonia possible aspiration BPH with LUTS troponin elevation likely type 2 [place] dementia, baseline hx of prostate cancer pathologic fractures thrombocytopenia keep ray cw flomax cw abx pending C by dr Fontana pt will likely need PET as outpatient palliative consult hold dvt ppx for thrombocytopenia diet HH Plan discussed with: Patient Date of Service: Dec 21, 2023 Billing Provider: MARISA KELLY MD Common Visit Codes: [id number] INP/OBS CARE(HIGH) MARISA KELLY MD Dec 21, 2023 18:55
[2023-12-22] VITALS (8 sets, daily range): BP systolic 101–158; BP diastolic 65–83; PULSE 70–101; RESP 17–20; TEMP 97.5–98.2; O2SAT 94–97
[2023-12-22 07:05] LABS: INR 1.06 (0.9-1.15); Partial Thromboplastin Time 26.6 SEC (24.5-34.5); Prothrombin Time 11.2 sec (9.3-11.8)
--- NOTE | 2023-12-22 13:43 | DVHPN2 ---
Progress Note - Dictate Date Seen: Dec 22, 2023 Medical Necessity Reason Pt with a Central, PICC or Fol: No Subjective PT WITH COUGH FEVER AMS LETAGHY PMH: CAD HX OF PTCA STENT RCA DEMENTIA vital signs Vital Sign Date Time Temp Pulse Resp B/P (MAP) Pulse Ox O2 Delivery O2 Flow Rate FiO2 12/22/23 13:00 97.5 101 20 108/69 (82) 94 97.5 12/22/23 08:00 Room Air* 0 21 Total Intake and Output 12/21/23 12/21/23 12/22/23 15:00 23:00 07:00 Intake Total 760 ml 0 ml Output Total 1000 ml 1300 ml Balance -240 ml -1300 ml medications Current Medications Medications Dose Ordered Sig/Bob Route Start Time Stop Time Status Last Admin Dose Admin Sodium Chloride 10 ml Q8HR IV 12/17/23 22:00 12/22/23 06:23 10 ML Acetaminophen/ Hydrocodone Bitart 1 tab Q4HP PRN PO 12/17/23 18:45 Ondansetron HCl 4 mg Q4HP PRN IV 12/17/23 18:45 Docusate Sodium 100 mg BIDPRN PRN PO 12/17/23 18:45 Acetaminophen 650 mg Q6HP PRN PO 12/17/23 18:45 Nitroglycerin 0.4 mg Q5MINP PRN SL 12/17/23 18:45 Morphine Sulfate 2 mg Q30M PRN IV 12/17/23 18:45 Prednisone 5 mg DAILY PO 12/18/23 10:00 12/22/23 09:52 5 MG Tamsulosin HCl 0.4 mg BID PO 12/17/23 22:00 12/22/23 09:52 0.4 MG Levothyroxine Sodium 200 mcg QAM PO 12/18/23 07:00 12/22/23 06:23 200 MCG Azithromycin 250 ml @ 125 mls/hr DAILY IV 12/18/23 10:00 12/22/23 09:53 125 MLS/HR Pantoprazole Sodium 40 mg DAILY PO 12/18/23 10:00 12/22/23 09:52 40 MG laboratory and microbiology Laboratory Tests 12/18/23 06:00 Test 12/18/23 06:00 Range/Units Serum Glucose 89 74-106 mg/dL Problem List COUGH FEVER AMS LETAGHY PMH: CAD HX OF PTCA STENT RCA DEMENTIA Assessment/Plan WILL CONSIDER LHC DISCUSS WITH FAMILY CONSIDER [facility] OUTPATIENT SINCE PT IS SX FREE Plan discussed with: Patient BENITEZ VALDERRAMA MD Dec 22, 2023 13:43
--- NOTE | 2023-12-22 18:01 | MEDREC ---
[facility] ASP Intervention Section I [facility] ASP Intervention: IV to PO conversion (PLEASE CONSIDER IV TO PO CONVERSION (PT IS TOLERATING FOOD AND ORAL MEDICATIONS ). ), Review courses of therapy (DUE TO THE PNEUMONIA INFECTION AND IMMUNOCOMPROMISED STATUS (CANCER), PLEASE CONSIDER ESCALATING ANTIBIOTICS TO COVER FOR POSSIBLE GRAM NEGATIVE BACTERIA ) SINAN RUTLEDGE PHARMACIST Dec 22, 2023 18:01
--- NOTE | 2023-12-22 19:01 | DVHPN2 ---
Subjective History of Present Illness Mary Dockery is an 88-year-old male with past medical history of dementia, hypothyroidism, and prostate cancer, who came into the ER due to generalized weakness. Family states the patient has become more fatigued, confused, frequent urination, and having flu like symptoms with a productive cough, and chills since last night. Patient has had elevated troponin while in the ER, he denies any chest pain, but was complaining of shoulder pain when he arrived. update - 12/17 - patient is at baseline with respect to alert and orientation. Endorse is history of trouble urinating and frequency/nocturia. On exam he has feeling well itself. - 12/18 - appears more orient. at bedside offers complete history. 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 she takes care of him and is overwhelmed. 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 patient is dementia and does not want NH. needs help at home (home care or similar). PT following. cardiology following and considering [facility]. - 12/21 - remains at baseline. BIJU over weekend. C planned for outpatient. near completion of ABx for PNA (pt is high risk group). he continues to decline NH, wants to stay home. ray out today. plan to resume HH and social to aid patient try to secure in home caregiver/home care (lives with who is suffering from campground caretaker fatigue at this point) Reviewed: H&P Changes from previous H/P or p: No Changes General: Per HPI Musculoskeletal: No other, No neck pain, No shoulder pain, No arm pain, No back pain, No hand pain, No leg pain, No foot pain Skin: No Rash, No Lesions, No Jaundice, No Bruising, No Other Objective Vitals Vital Signs Date Time Temp Pulse Resp B/P (MAP) Pulse Ox O2 Delivery O2 Flow Rate FiO2 12/22/23 17:00 97.6 80 17 110/65 (80) 97 97.6 12/22/23 08:00 Room Air* 0 21 Intake/Output Intake and Output 12/22/23 07:00 Intake Total 760 ml Output Total 2300 ml Balance -1540 ml Intake Oral 760 ml Output Urine Total 2300 ml # Bowel Movements 1 Exam GEN: Healthy appearing, well-developed, NAD. AOx3-4 HEENT: NC/AT; MMM. CV: LLL decreased breath sounds , no m/r/g. LUNGS: CTAB, no w/r/c. ABD: Soft, NT/ND, NBS, no masses or organomegaly. EXT: skin Warm, well perfused. no rashes. No clubbing, cyanosis, or edema. NEURO: Ambulating with no limitations. No focal deficits. Medications Current Medications Medications Dose Ordered Sig/Bob Route Start Time Stop Time Status Last Admin Dose Admin Sodium Chloride 10 ml Q8HR IV 12/17/23 22:00 12/22/23 14:00 10 ML Acetaminophen/ Hydrocodone Bitart 1 tab Q4HP PRN PO 12/17/23 18:45 Ondansetron HCl 4 mg Q4HP PRN IV 12/17/23 18:45 Docusate Sodium 100 mg BIDPRN PRN PO 12/17/23 18:45 Acetaminophen 650 mg Q6HP PRN PO 12/17/23 18:45 Nitroglycerin 0.4 mg Q5MINP PRN SL 12/17/23 18:45 Morphine Sulfate 2 mg Q30M PRN IV 12/17/23 18:45 Prednisone 5 mg DAILY PO 12/18/23 10:00 12/22/23 09:52 5 MG Tamsulosin HCl 0.4 mg BID PO 12/17/23 22:00 12/22/23 09:52 0.4 MG Levothyroxine Sodium 200 mcg QAM PO 12/18/23 07:00 12/22/23 06:23 200 MCG Azithromycin 250 ml @ 125 mls/hr DAILY IV 12/18/23 10:00 12/22/23 09:53 125 MLS/HR Pantoprazole Sodium 40 mg DAILY PO 12/18/23 10:00 12/22/23 09:52 40 MG Laboratory Results Laboratory Tests 12/18/23 06:00 Coagulation Test 12/22/23 06:41 Prothrombin Time 11.2 sec (9.3-11.8) Prothrombin Time INR 1.06 (0.9-1.15) Activated Partial Thromboplast Time 26.6 SEC (24.5-34.5) Urinalysis Test 12/18/23 14:10 Urine Color Light-yellow (Yellow) Urine Clarity Clear (Clear) Urine pH 6.0 (5.0-9.0) Urine Specific [place] 1.012 (1.001-1.035) Urine Protein Negative (Negative) Urine Ketones Negative (Negative) Urine Blood 1+ /uL (Negative) H Urine Nitrite Negative (Negative) Urine Bilirubin Negative (Negative) Urine Urobilinogen Normal mg/dL (Negative) Urine Leukocyte Esterase 1+ /uL (Negative) Urine RBC 3 /hpf (0 - 3) Urine WBC 2 /hpf (0 - 3) Urine Squamous Epithelial Cells None seen /hpf (<5) Urine Bacteria Few /hpf (None Seen) H Urine Glucose Normal mg/dL (Normal) Microbiology Microbiology Date/Time Source Procedure Growth Status 12/18/23 14:10 Voided Urine Urine Culture - Final Complete Labs and/or images reviewed: Labs reviewed by me, Image(s) reviewed by me Assessment/Plan Assessment/Plan update - - 12/21 - remains at baseline. BIJU over weekend. [facility] planned for outpatient. near completion of ABx for PNA (pt is high risk group). he continues to decline NH, wants to stay home. ray out today. plan to resume HH and social to aid patient try to secure in home caregiver/home care (lives with who is suffering from campground caretaker fatigue at this point) tentative plan: high risk pt, need IV abx. removing ray. [facility] outpt. d/c likely tomorrow after abx complete and safe discharge with social help in discharge plan. Pneumonia, Gram-negative/Gram-positive organism likely Neutrophilia/left shift -chest x-ray showing atypical pneumonia and bilateral rib fractures which appear to be pathological in nature. -IV antibiotics azithromycin and ceftriaxone -goal oxygen more than 90% Frequency History of urinary hesitancy urinary incontinence, overflow BPH Concern for urinary infection - u/a not concerning for uti (wbc <10) - ray to remove today. -Continue Flomax Dementia -continue home medications Troponinemia Type 2 NSTEMI likely - keep on tele - cardiology dr martinez considering [facility]. History of prostate cancer New unknown possible bone cancer Rib pathological fracture sites, unknown chronicity - as per cxr . radiology recommends CT. no need CT as pt already konwn to have mets. will need regular f/u with primary oncologist in [place]. Thrombocytopenia- stable. Plan discussed with: Patient My Orders Orders - MISA CARLSON MD Procedure Category Date Status Time Discontinue Ray SAGRARIO 12/22/23 In Process Catheter 15:26 Date of Service: Dec 22, 2023 Billing Provider: MISA CARLSON MD Common Visit Codes: [id number] INP/OBS CARE(MOD) MISA CARLSON MD Dec 22, 2023 19:01
[2023-12-22] MEDS ORDERED: traZODone HCL 50 MG TAB PO PRN (21:00)
[2023-12-23 01:00] VITALS: BP 128/68; PULSE 74; RESP 17; TEMP 97.6; O2SAT 98
[2023-12-23 05:00] VITALS: BP 139/67; PULSE 77; RESP 17; TEMP 98.2; O2SAT 94
[2023-12-23 08:00] VITALS: PULSE 70
[2023-12-23 08:07] VITALS: PULSE 80; O2SAT 95
[2023-12-23 09:00] VITALS: BP 127/72; PULSE 64; RESP 18; TEMP 97.9; O2SAT 95
--- NOTE | 2023-12-23 09:32 | DVHDS2 ---
Discharge Summary Date of Admission Dec 17, 2023 at 18:40 Date of Discharge: Dec 23, 2023 Labs/Diagnostic Data: Laboratory Results Test 12/22/23 06:41 12/18/23 14:10 12/18/23 06:00 12/17/23 14:30 Prothrombin Time 11.2 sec (9.3-11.8) Prothrombin Time INR 1.06 (0.9-1.15) Activated Partial Thromboplast Time 26.6 SEC (24.5-34.5) Urine Color Light-yellow (Yellow) Urine Clarity Clear (Clear) Urine pH 6.0 (5.0-9.0) Urine Specific [place] 1.012 (1.001-1.035) Urine Protein Negative (Negative) Urine Ketones Negative (Negative) Urine Blood 1+ /uL (Negative) Urine Nitrite Negative (Negative) Urine Bilirubin Negative (Negative) Urine Urobilinogen Normal mg/dL (Negative) Urine Leukocyte Esterase 1+ /uL (Negative) Urine RBC 3 /hpf (0 - 3) Urine WBC 2 /hpf (0 - 3) Urine Squamous Epithelial Cells None seen /hpf (<5) Urine Bacteria Few /hpf (None Seen) Urine Glucose Normal mg/dL (Normal) White Blood Count 5.5 10^3/uL (4.4-10.8) Red Blood Count 4.12 10^6/uL (4.5-5.90) Hemoglobin 12.9 g/dL (13.5-17.5) Hematocrit 39.0 % (41.0-53.0) Mean Corpuscular Volume 94.5 fL (80.0-100.0) Mean Corpuscular Hemoglobin 31.3 pg (28.0-32.0) Mean Corpuscular Hemoglobin Concent 33.2 g/dL (32.0-36.0) Red Cell Distribution Width 13.4 % (11.8-14.3) Platelet Count 81 10^3/uL (140-450) Mean Platelet Volume 7.6 fL (6.9-10.8) Neutrophils (%) (Auto) 81.4 % (37.0-80.0) Lymphocytes (%) (Auto) 7.8 % (10.0-50.0) Monocytes (%) (Auto) 10.2 % (0.0-12.0) Eosinophils (%) (Auto) 0.2 % (0.0-7.0) Basophils (%) (Auto) 0.4 % (0.0-2.0) Neutrophils # (Auto) 4.5 10 ^3/uL (1.6-8.6) Lymphocytes # (Auto) 0.4 10 ^3/uL (0.4-5.4) Monocytes # (Auto) 0.6 10 ^3/uL (0-1.3) Eosinophils # (Auto) 0 10 ^3/uL (0-0.8) Basophils # (Auto) 0 10 ^3/uL (0-0.2) Nucleated Red Blood Cells 0.0 % Sodium Level 138 mmol/L (136-145) Potassium Level 3.9 mmol/L (3.5-5.1) Chloride Level 107 mmol/L (98-107) Carbon Dioxide Level 25 mmol/L (20-31) Anion Gap 6 (5-15) Blood Urea Nitrogen 23 mg/dL (9-23) Creatinine 0.97 mg/dL (0.700-1.30) Glomerular Filtration Rate Calc 76 mL/min (>90) BUN/Creatinine Ratio 23.7 (10.0-20.0) Serum Glucose 89 mg/dL (74-106) Calcium Level 9.3 mg/dL (8.7-10.4) Total Bilirubin 0.9 mg/dL (0.2-1.0) Aspartate Amino Transferase (AST) 19 U/L (13-40) Alanine Aminotransferase (ALT) < 9 U/L (7-40) Alkaline Phosphatase 157 U/L (46-116) Total Protein 5.9 g/dL (5.7-8.2) Albumin 3.2 g/dL (3.2-4.8) Troponin I High Sensitivity 231 ng/L (</=54) Other Laboratory Tests 12/18/23 06:00 Brief Hx & Hospital Course: 88-year-old male with past medical history of dementia, hypothyroidism, and prostate cancer, who came into the ER due to generalized weakness. Family states the patient has become more fatigued, confused, frequent urination, and having flu like symptoms with a productive cough, and chills since last night. Patient has had elevated troponin while in the ER, he denies any chest pain. CXR c/w atypical pneumonia but also shows bilateral rib fractures. 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 Patient is started on azithromycin and ceftriaxone and starts improving. Patient had chronic urinary incontinence required [place] during the hospitalization. Troponin was elevated and cardiology was consulted to Dr. Fontana. left heart catheterization plan for outpatient. Patient improved to normal function AOx3-4, wants to be fullcode, declinces NH despite having trouble caring for him. social to help with patients needs, medically stable for discharge. 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, continue HH but also adding home PT, eval for hospital bed (thus far doesnt qualify), - continue other medications not mentioned (continue cancer medications) Visitation and planning required 35 minutes Condition at Discharge: Fair Final Diagnosis/Problems List pneumonia; gait instability; fecal incontinence; urinary incontinence; ongoing prostate cancer treatment; lesions on ribs bilaterally; Discharge Disposition: Home with Health Services Discharge Instruct/Medications Diet: Regular Activity: See Comment Activity comment: walker; help with standing/sitting; home PT Follow Up/Referral: PCP; primary oncology (regular f/u) Medications: - stop BP medications Discharge Statement: "Patient was advised to return to the ER or call 911 if any headaches, dizziness, shortness of breath, chest pain, abdominal pain, bleeding, fevers, or worsening of medical condition. Patient was counseled about treatment plan, medications, possible side effects, patientverbalized understanding. All questions were answered to the best of my ability. This discharge took greater then 30 minutes in planning, reviewing documentation, counseling the patient, and discussing with other team members." DME: Diagnosis: gait instability, loss of control of urination/defecation ASSESSMENT ASSESSMENT Assessment pneumonia; gait instability; fecal incontinence; urinary incontinence; ongoing prostate cancer treatment; lesions on ribs bilaterally; Date of Service: Dec 23, 2023 Billing Provider: MISA CARLSON MD Common Visit Codes: 10193-MRB/OBS DISCH DAY >30min MISA CARLSON MD Dec 23, 2023 09:32
[2023-12-23] MEDS ORDERED: AUG875T PO (09:42)
[2023-12-23 09:56] VITALS: TEMP 36.8
[2023-12-23 10:23] LABS: Basophils # (auto) 0 10 ^3/uL (0-0.2); Basophils % (auto) 0.6 % (0.0-2.0); Eosinophils # (auto) 0.1 10 ^3/uL (0-0.8); Eosinophils % (auto) 1.4 % (0.0-7.0); Hematocrit 40.9 % (41.0-53.0); Lymphocytes # (auto) 1.1 10 ^3/uL (0.4-5.4); Lymphocytes % (auto) 17.5 % (10.0-50.0); Mean Corpuscular Hgb Conc. 34.4 g/dL (32.0-36.0); Mean Corpuscular Volume 93.1 fL (80.0-100.0); Monocytes # (auto) 0.5 10 ^3/uL (0-1.3); Monocytes % (auto) 7.9 % (0.0-12.0); Neutrophils # (auto) 4.6 10 ^3/uL (1.6-8.6); Neutrophils % (auto) 72.6 % (37.0-80.0); Nucleated Red Blood Cells % 0.1 %; Platelet Count (auto) 157 10^3/uL (140-450); Red Blood Cells 4.39 10^6/uL (4.5-5.90); Red Cell Distribution Width 13.1 % (11.8-14.3); White Blood Cell 6.3 10^3/uL (4.4-10.8)
--- NOTE | 2023-12-23 10:30 | DVHPN2 ---
Progress Note - Dictate Date Seen: Dec 23, 2023 Medical Necessity Reason Pt with a Central, PICC or Fol: No Subjective PT WITH COUGH FEVER AMS LETAGHY PMH: CAD HX OF PTCA STENT RCA DEMENTIA vital signs Vital Sign Date Time Temp Pulse Resp B/P (MAP) Pulse Ox O2 Delivery O2 Flow Rate FiO2 12/23/23 09:56 36.8 12/23/23 09:00 64 18 127/72 (90) 95 12/23/23 08:07 Room Air* 0 21 Total Intake and Output 12/22/23 12/22/23 12/23/23 14:59 22:59 06:59 Intake Total 250 ml 200 ml Output Total 400 ml 100 ml Balance 250 ml -400 ml 100 ml medications Current Medications Medications Dose Ordered Sig/Bob Route Start Time Stop Time Status Last Admin Dose Admin Sodium Chloride 10 ml Q8HR IV 12/17/23 22:00 12/23/23 05:56 10 ML Acetaminophen/ Hydrocodone Bitart 1 tab Q4HP PRN PO 12/17/23 18:45 Ondansetron HCl 4 mg Q4HP PRN IV 12/17/23 18:45 Docusate Sodium 100 mg BIDPRN PRN PO 12/17/23 18:45 Acetaminophen 650 mg Q6HP PRN PO 12/17/23 18:45 Nitroglycerin 0.4 mg Q5MINP PRN SL 12/17/23 18:45 Morphine Sulfate 2 mg Q30M PRN IV 12/17/23 18:45 Prednisone 5 mg DAILY PO 12/18/23 10:00 12/22/23 09:52 5 MG Tamsulosin HCl 0.4 mg BID PO 12/17/23 22:00 12/22/23 22:51 0.4 MG Levothyroxine Sodium 200 mcg QAM PO 12/18/23 07:00 12/23/23 05:57 200 MCG Azithromycin 250 ml @ 125 mls/hr DAILY IV 12/18/23 10:00 12/22/23 09:53 125 MLS/HR Pantoprazole Sodium 40 mg DAILY PO 12/18/23 10:00 12/22/23 09:52 40 MG Trazodone HCl 50 mg QHSP PRN PO 12/22/23 21:00 laboratory and microbiology Laboratory Tests 12/23/23 09:42 Test 12/23/23 09:42 Range/Units Serum Glucose Pending Problem List COUGH FEVER AMS LETAGHY PMH: CAD HX OF PTCA STENT RCA DEMENTIA Assessment/Plan WILL CONSIDER [facility] DISCUSS WITH FAMILY CONSIDER [facility] OUTPATIENT SINCE PT IS SX FREE MAY DC HOME FOLLOWUP IN 1 WEEK Plan discussed with: Patient BENITEZ VALDERRAMA MD Dec 23, 2023 10:29
[2023-12-23 10:31] LABS: Alanine Aminotransferase 16 U/L (7-40); Albumin 3.7 g/dL (3.2-4.8); Alkaline Phosphatase 142 U/L (46-116); Anion Gap 2 (5-15); Aspartate Aminotransferase 21 U/L (13-40); BUN/Creatinine Ratio 21.7 (10.0-20.0); Bilirubin, Total 0.5 mg/dL (0.2-1.0); Blood Urea Nitrogen 18 mg/dL (9-23); Calcium 9.5 mg/dL (8.7-10.4); Carbon Dioxide 30 mmol/L (20-31); Chloride 103 mmol/L (98-107); Glucose 131 mg/dL (74-106); Sodium 135 mmol/L (136-145); Total Protein 6.6 g/dL (5.7-8.2)
--- NOTE | 2023-12-31 09:27 | DVHSR ---
APPROVED REPORT EXAM: Two-dimensional and M-mode echocardiogram with Doppler and color Doppler. Blood Pressure: 111/70 mmHg INDICATION Elevated Trops, heart function RISK FACTORS Height: 70, Weight: 162 DIMENSIONS LVDd3.3 (3.8-5.7cm)LA (2D) (1.9-4.0cm)Aortic Root (2.0-3.7cm) LVDs2.5 (2.5-4.0cm)LA (MM) (1.9-4.0cm)Aortic Cusp Exc (1.5-2.0cm) EF (%) 50.0 (55-70%)Rt. Atrium3.3 (1.9-4.0cm)Asc. Aorta cm Mitral Valve MitralMitral Stenosis E wave0.39m/sMV Mean GR.1mmHg A wave0.94m/sMV Peak GR.4mmHg E/A ratio0.42D MVAcm2 DECEL [id number] 1/2 [id number] IVRTmsDop MVA2.85cm2 Aortic Valve Aortic ValveAortic Stenosis V10.90m/Vanessa Mean GR.9mmHg V22.10m/Vanessa Peak GR.18mmHg AI P 1/2 Ayyn039.81ms Tricuspid Valve TR Velocity2.03m/s [id number] Other Information Technically limited study due to body habitus, patient position and patient was sleeping. Conclusion LIMITED ECHO WINDOWS APICAL 4 CHAMBER VIEW EF 45%
== END 2023-12-23 11:45 | disposition home health service (06) | DRG 177 ==
LOC: ER 09:29 → TELE 18:40 → TELE-CENTR 22:18
PROVIDERS: ADMIT Nurse Practitioner Family; ATTEND Student in an Organized Health Care Education/Training Program
DX: J15.69 Pneumonia due to other Gram-negative bacteria (principal); G93.41 Metabolic encephalopathy; I21.A1 Myocardial infarction type 2; M84.48XA Pathological fracture, other site, initial encounter for fracture; C79.51 Secondary malignant neoplasm of bone; D69.6 Thrombocytopenia, unspecified; J15.9 Unspecified bacterial pneumonia; F03.90 Unspecified dementia, unspecified severity, without behavioral disturbance, psychotic disturbance, mood disturbance, and anxiety; N40.1 Benign prostatic hyperplasia with lower urinary tract symptoms; E86.0 Dehydration; E03.9 Hypothyroidism, unspecified; I25.10 Atherosclerotic heart disease of native coronary artery without angina pectoris; R32 Unspecified urinary incontinence; C61 Malignant neoplasm of prostate; Z90.49 Acquired absence of other specified parts of digestive tract; Z96.641 Presence of right artificial hip joint; Z95.5 Presence of coronary angioplasty implant and graft
CPT/HCPCS: 36415; 71045; 80048; 80053; 81001; 84484; 85025; 85610; 85730; 86850; 86900; 86901; 87086; 93306; 96361; 96365; 96375; 97110; 97116; 97163; 97530; 99291; G0378; J1956; J2405